=== PATIENT | male | born 1985 | race Caucasian/White ===

== ENCOUNTER 2017-01-02 14:52 | Emergency (ER) | payer OTHER ==
[2017-01-02 15:00] VITALS: BP 113/75; PULSE 80; TEMP 98.5; BMI 25.0
--- NOTE | 2017-01-02 15:01 | PDOC ---
Attending Attestation - Resident Resident Name: Nely Wan - ED Attending Attestation I have performed the following: I have examined & evaluated the patient, The case was reviewed & discussed with the resident, I agree w/resident's findings & plan, Exceptions are as noted
[2017-01-02] MEDS ORDERED: IBUPROFEN 400 MG TABLET (FP) PO ONE ×2 (15:41→15:43)
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
== END 2017-01-02 15:50 | disposition home or self-care (01) ==
LOC: FER 14:52
DX: S13.4XXA Sprain of ligaments of cervical spine, initial encounter (principal); V43.52XA Car driver injured in collision with other type car in traffic accident, initial encounter; Y93.89 Activity, other specified; Y92.410 Unspecified street and highway as the place of occurrence of the external cause
CPT/HCPCS: 99281-25